=== PATIENT | male | born 2000 | race African-American/Black ===

== ENCOUNTER 2024-02-12 20:55 | Emergency (ER) | payer OTHER, SELFPAY ==
--- NOTE | ~2024-02-12 | CT_ITS ---
Non-contrast CT scan of the Abdomen and Pelvis Clinical indication: Right flank pain Technique: 2.5 mm axial scans were obtained through the abdomen and pelvis without intravenous or or al contrast. Dose reduction technique was used on this scan by utilizing automated exposure control a nd iterative reconstruction technique. The dose-length product (DLP) was 625.08 mGy-cm. Findings: Images through the lung bases reveal no abnormalities. There is no evidence of renal or ureteral calculi. The kidneys and the ureters are nondilated. The liver, spleen, pancreas, gallbladder, and adrenals appear normal. There is no aortic aneurysm. There is no evidence of bowel obstruction. Shotty right lower quadrant lymph nodes are noted. Images through the pelvis were performed. There is no evidence of ascites or lymphadenopathy. Urinary bladder unremarkable. No pelvic mass seen. Impression: Shotty right lower quadrant lymph nodes could reflect mesenteric adenitis. No other significant findings. Reviewed, dictated and finalized at [facility]. Impression: Shotty right lower quadrant lymph nodes could reflect mesenteric adenitis. No other significant findings.
[2024-02-12 20:58] VITALS: BP 139/82; PULSE 112; RESP 18; TEMP 36.7; O2SAT 100
[2024-02-12 22:11] VITALS: BP 117/66; PULSE 90; RESP 17; O2SAT 100
[2024-02-12 22:22] LABS: Basophils Percent Auto 0.4 % (0.2-1.2); Eosinophils Absolute Auto 0.2 K/mm3 (0-0.3); Eosinophils Percent Auto 3.1 % (0-4.4); Hemoglobin 14.3 g/dL (14.0-18.0); Immature Granulocyte Absolute 0.02 K/mm3 (0.00-0.031); Immature Granulocyte Percent A 0.3 % (0-0.5); Lymphocytes Percent Auto 32.6 % (18.3-44.2); Mean Corpuscular HGB Conc 33.3 g/dl (32-36); Mean Corpuscular Volume 84.3 fl (80-100); Mean Platelet Volume 9.5 fl (7.4-10.4); Monocytes Absolute Auto 0.5 K/mm3 (0.1-0.6); Monocytes Percent Auto 6.7 % (2.6-8.5); Neutrophils Absolute Auto 4.4 K/mm3 (1.3-6.7); Neutrophils Percent Auto 56.9 % (45.5-73.1); Platelet Count Result 242 k/mm3 (150-375); Red Cell Distribution Width 12.6 % (11.5-14.5); White Blood Count 7.7 K/mm3 (4.5-10.0)
[2024-02-12 22:32] LABS: Alanine Aminotransferase 25 U/L (6-50); Albumin Level 4.5 g/dL (3.5-5.1); Alkaline Phosphatase 69 U/L (38-126); Anion Gap 12 mmol/L (4-12); Aspartate Amino Transferase 23 U/L (17-59); Bilirubin,Total 0.3 mg/dL (0.2-1.3); Blood Urea Nitrogen 13 mg/dL (9-20); Calcium 9.4 mg/dL (8.4-10.2); Carbon Dioxide 24 mmol/L (22-30); Chloride 102 mmol/L (98-107); Estimated CRCL calculation 121 ml/min; Estimated Glomerular Filt Rate > 60; Glucose 147 mg/dL (65-110); Potassium 3.4 mmol/L (3.4-5.0); Sodium 138 mmol/L (137-145)
[2024-02-12 22:36] LABS: Add Urine Microscopic? NO; Appearance Urine Clear (Clear); Bilirubin Urine Negative (Negative); Blood Urine Negative (Negative); Color Urine Yellow (Yellow); Glucose Urine UA Negative (Negative); Ketones Urine Negative (Negative); Leukocyte Esterase Ur Negative LEU/UL (Negative); Nitrate Urine Negative (Negative); Protein Urine Negative (Negative); pH Urine 5.5 (5.0-9.0)
[2024-02-12] MEDS: ACETAMINOPHEN 500 MG TABLET 1000 MG PO (23:41)
[2024-02-12] MEDS: KETOROLAC 15 MG/ML VIAL (*BKC) IV PUSH (23:42)
[2024-02-12] MEDS: SODIUM CHLORIDE 0.9% IV 1,000 ML 999 ML IV CONT (23:42)
[2024-02-12] MEDS: ONDANSETRON INJ 4 MG/2 ML VIAL IV PUSH (23:42)
--- NOTE | 2024-02-12 23:46 | PC.NURSE ---
pt verbalized not having a ride home, so will hold muscle relaxers at this time.
[2024-02-12] MEDS: methocarbamoL 750 MG TABLET 1500 MG PO (23:55)
--- NOTE | 2024-02-12 23:56 | PC.NURSE ---
ok to give half dose of robaxin per edp
--- NOTE | 2024-02-13 01:28 | ED.GENADULT ---
HPI - General Adult General Chief complaint: Urogenital-Male Stated complaint: blood in urine, vomiting blood Time Seen by Provider: 02/12/24 22:12 History of Present Illness HPI narrative: This is a 23-year-old male presenting with multiple complaints. His 1st concern is vomiting blood. Patient said he threw up twice this morning and there were specks of red in it. No history of alcohol abuse liver cirrhosis or blood thinners. He is no longer nauseous. Patient is also complaining of right-sided flank pain. Says he has a sharp pain in the right flank it is nonradiating mild in intensity and constant. He is concerned about kidney stones. He says that he has had some blood in his urine and by that he means is been dark. Patient denies dysuria, is not sexually active, no penile discharge or testicular pain. No history of kidney stones. Related Data Allergies Allergy/AdvReac Type Severity Reaction Status Date / Time No Known Allergies Allergy Verified 02/12/24 23:40 Exam Narrative: APPEARANCE: No apparent distress. Anxious appearing Head: atraumatic. EYES: EOMI, NOSE: Atraumatic NECK: Trachea midline RESPIRATORY: No increased rate of breathing, clear to auscultation CARDIOVASCULAR: RRR, ABDOMINAL: Non-distended soft nontender no guarding rebound, no CVA tenderness MUSCULOSKELETAl: No obvious deformities NEURO: Alert. Moving 4/4 extremities SKIN:: Warm, dry. Normal color PSYCHIATRIC: Normal affect Course Vital Signs Vital signs: Vital Signs Temperature 98.1 F 02/12/24 20:58 Pulse Rate 112 H 02/12/24 20:58 Respiratory Rate 18 02/12/24 20:58 Blood Pressure 139/82 02/12/24 20:58 Pulse Oximetry 100 02/12/24 20:58 Oxygen Delivery Room Air 02/12/24 20:58 Temperature 98.1 F 02/12/24 20:58 Pulse Rate 90 02/12/24 22:11 Respiratory Rate 17 02/12/24 22:11 Blood Pressure 117/66 02/12/24 22:11 Pulse Oximetry 100 02/12/24 22:11 Oxygen Delivery Room Air 02/12/24 20:58 Medical Decision Making [facility] Narrative Medical decision making narrative: -Course: 23-year-old male presenting with multiple complaints. In regards to flank pain and possible hematuria. His urine is not indicative infection. There is no blood in his urine. He does not have kidney stones on a CT. He has no CVA tenderness and is resting comfortably. Patient had 2 episodes of vomiting with specks of blood in it but I am not concerned for true hematemesis. Patient was informed of the results it appears vastly relieved. He will be discharged with primary care follow-up return precautions. -DDX includes but is not limited to: Nausea vomiting, hematemesis, gastritis, muscle pain, kidney stone, kidney infection -Independent interpretation of studies: Labs imaging reviewed -Interventions: Motrin Tylenol Robaxin -Shared decision making / Disposition: Discharge -RX Motrin Tylenol Robaxin Vital Signs Vital Signs: Vital Signs Temperature 98.1 F 02/12/24 20:58 Pulse Rate 112 H 02/12/24 20:58 Respiratory Rate 18 02/12/24 20:58 Blood Pressure 139/82 02/12/24 20:58 Pulse Oximetry 100 02/12/24 20:58 Oxygen Delivery Room Air 02/12/24 20:58 Temperature 98.1 F 02/12/24 20:58 Pulse Rate 90 02/12/24 22:11 Respiratory Rate 17 02/12/24 22:11 Blood Pressure 117/66 02/12/24 22:11 Pulse Oximetry 100 02/12/24 22:11 Oxygen Delivery Room Air 02/12/24 20:58 Lab Data 02/12/24 22:16 02/12/24 22:16 Labs: Lab Results 02/12/24 02/12/24 Range/Units 22:16 22:29 WBC 7.7 (4.5-10.0) K/mm3 RBC 5.10 (4.6-6.20) M/mm3 Hgb 14.3 (14.0-18.0) g/dL Hct 43.0 (42.0-52.0) % MCV 84.3 (80-100) fl MCH 28.0 (26-34) pg MCHC 33.3 (32-36) g/dl RDW 12.6 (11.5-14.5) % Plt Count 242 (150-375) k/mm3 MPV 9.5 (7.4-10.4) fl Immature Gran % (Auto) 0.3 (0-0.5) % Neut % (Auto) 56.9 (45.5-73.1) % Lymph % (Auto) 32.6 (18.3-4
[2024-02-13 03:54] VITALS: BP 117/75; PULSE 66; RESP 16; TEMP 36.6; O2SAT 98
== END 2024-02-13 03:55 | disposition home or self-care (01) ==
PROVIDERS: Emergency Provider Emergency Medicine
DX: R11.2 Nausea with vomiting, unspecified (principal); R10.9 Unspecified abdominal pain
CPT/HCPCS: 36415; 74176; 80053; 81003; 85025; 96361; 96374; 96375; 99284; A9270; J1885; J2405; J7030

== ENCOUNTER 2024-06-24 01:59 | Emergency (ER) | payer OTHER, SELFPAY ==
--- NOTE | ~2024-06-24 | CT_ITS ---
Clinical Indication: Pain CT Scan of the Chest, Abdomen, and Pelvis with Contrast: Technique: Contiguous sections were acquired throughout the chest, abdomen, and pelvis after intraven ous administration of 100 cc of Omnipaque 350. Dose reduction technique was used on this scan by tati carcamo automated exposure control and iterative reconstruction technique. The dose-length product (DL P) was 723.99 mGy-cm. Comparison: 02/13/2024 Findings: There is no evidence of any significant mediastinal, hilar or axillary lymphadenopathy. The mediastin al soft tissues appear normal. No large central pulmonary embolus seen. No aortic aneurysm or dissect ion. There is no evidence of pleural or pericardial effusion. The lungs are clear. No pulmonary nodules or infiltrates are noted. The liver, spleen, pancreas, gallbladder, adrenals and kidneys are within normal limits. No evidence of aortic aneurysm. No lymphadenopathy. No bowel obstruction or bowel wall thickening. There is no evidence to suggest acute appendicitis. Urinary bladder is unremarkable. No pelvic mass seen. No ascites. Impression: No significant abnormalities seen. Reviewed, dictated and finalized at [facility]. RICAL CONTROL MACHINE OPERATOR Impression: No significant abnormalities seen.
[2024-06-24 02:00] VITALS: BP 131/87; PULSE 115; RESP 18; TEMP 36.6; O2SAT 100
[2024-06-24 02:22] LABS: Basophils Percent Auto 0.4 % (0.2-1.2); Eosinophils Absolute Auto 0.1 K/mm3 (0-0.3); Eosinophils Percent Auto 0.9 % (0-4.4); Hematocrit 43.5 % (42.0-52.0); Hemoglobin 14.3 g/dL (14.0-18.0); Immature Granulocyte Absolute 0.01 K/mm3 (0.00-0.031); Immature Granulocyte Percent A 0.1 % (0-0.5); Lymphocytes Absolute Auto 2.62 K/mm3 (0.9-3.2); Mean Corpuscular HGB Conc 32.9 g/dl (32-36); Mean Corpuscular Volume 85.1 fl (80-100); Mean Platelet Volume 9.5 fl (7.4-10.4); Monocytes Absolute Auto 0.6 K/mm3 (0.1-0.6); Monocytes Percent Auto 8.1 % (2.6-8.5); Neutrophils Absolute Auto 4.4 K/mm3 (1.3-6.7); Neutrophils Percent Auto 56.5 % (45.5-73.1); Platelet Count Result 254 k/mm3 (150-375); Red Blood Count 5.11 M/mm3 (4.6-6.20); Red Cell Distribution Width 12.5 % (11.5-14.5); White Blood Count 7.7 K/mm3 (4.5-10.0)
--- NOTE | 2024-06-24 02:25 | ECG_ITS ---
Test Date: 2024-06-24 02:30:01 Measurements Intervals [place] Rate: 109 P: 32 TX: 153 QRS: 58 QRSD: 93 T: 33 QT: 320 QTc: 432 Interpretive Statements SINUS TACHYCARDIA MODERATE T-WAVE ABNORMALITY, CONSIDER ANTERIOR ISCHEMIA [-0.1+ mV T-WAVE IN V3/V4] No previous ECG available for comparison Electronically Signed On 06-24-2024 15:16:05 MUSIC CRITIC by Markie Henao M.D.
[2024-06-24] MEDS: ONDANSETRON INJ 4 MG/2 ML VIAL IV PUSH (02:31)
[2024-06-24] MEDS: SODIUM CHLORIDE 0.9% IV 1,000 ML 999 ML IV CONT ×2 (02:31→02:32)
[2024-06-24 02:32] LABS: Alanine Aminotransferase 38 U/L (6-50); Albumin Level 4.4 g/dL (3.5-5.1); Alkaline Phosphatase 71 U/L (38-126); Anion Gap 11 mmol/L (4-12); Aspartate Amino Transferase 22 U/L (17-59); Bilirubin,Total 0.4 mg/dL (0.2-1.3); Blood Urea Nitrogen 15 mg/dL (9-20); Calcium 8.8 mg/dL (8.4-10.2); Carbon Dioxide 23 mmol/L (22-30); Chloride 105 mmol/L (98-107); Estimated Glomerular Filt Rate > 60; Glucose 125 mg/dL (65-110); Lipase 48 U/L (23-300); Potassium 3.5 mmol/L (3.4-5.0); Sodium 139 mmol/L (137-145)
[2024-06-24 02:45] VITALS: TEMP 36.6
[2024-06-24 02:49] LABS: Magnesium 1.9 mg/dL (1.6-2.3)
--- NOTE | 2024-06-24 03:36 | ED.ABDPAIN ---
HPI - Abdominal Pain General Chief Complaint: Abdominal Pain Stated Complaint: headache, N/V, left left abdomen tightness Time Seen by Provider: 06/24/24 02:14 History of Present Illness HPI narrative: Patient is a 23-year-old male who presents to the emergency department this evening complaining of left-sided flank pain and left upper abdominal pain for the past 3 days. Patient also states that he has been having nausea, vomiting and headache as well. Denies any urinary symptoms including dysuria or hematuria. Denies any sharp stabbing chest pain or any shortness of breath. Patient also denies any history of kidney stones. No sick contacts at home. Denies any fevers or chills. No additional symptoms or concerns at this time. Related Data Allergies Allergy/AdvReac Type Severity Reaction Status Date / Time No Known Allergies Allergy Verified 02/12/24 23:40 Review of Systems Review of Systems: All systems are reviewed and are negative unless stated otherwise in the HPI. Exam Narrative: General: Alert, awake, afebrile, in no acute distress. HEENT: PERRL, no rhinorrhea, no post nasal drip, oropharynx clear. Neck: Trachea midline, no JVD, no lymphadenopathy. Cardiovascular: Regular rate and rhythm, no murmurs, rubs or gallops, no peripheral edema. Respiratory: Clear to auscultation bilaterally, no tachypnea, no wheezing, no rhonchi, no rubs, no respiratory distress. Abdomen: Soft, nontender, nondistended, no rebound, no guarding, no peritoneal signs. Musculoskeletal: No joint swelling or deformity, normal muscle tone. Skin: No rashes or petechia, no signs of infection. Psychiatric: Alert and oriented, normal behavior and judgment for situation. Neurological: Alert and oriented to person, place, and time. Follows all commands. No focal deficits, speech is clear and fluent. Course Vital Signs Vital signs: Vital Signs Temperature 97.8 F 06/24/24 02:00 Pulse Rate 115 H 06/24/24 02:00 Respiratory Rate 18 06/24/24 02:00 Blood Pressure 131/87 06/24/24 02:00 Pulse Oximetry 100 06/24/24 02:00 Oxygen Delivery Room Air 06/24/24 02:00 Temperature 97.9 F 06/24/24 02:45 Pulse Rate 81 06/24/24 06:04 Respiratory Rate 14 06/24/24 06:04 Blood Pressure 106/65 06/24/24 06:04 Pulse Oximetry 100 06/24/24 06:04 Oxygen Delivery Room Air 06/24/24 02:00 MDM - Abdominal Pain MDM Narrative Medical decision making narrative: The patient was evaluated by myself in the emergency department. History is obtained from patient who is an independent historian and physical exam was performed. External medical records were reviewed at this time. IV was established and pertinent tests were ordered. Patient was administered 1 L IV fluid bolus with normal saline, 4 mg IV Zofran for nausea which patient states has not helped his nausea and at this time was administered 10 mg of IV Reglan, 25 mg IV Benadryl and 15 mg of IV Toradol for pain. EKG was obtained which revealed sinus tachycardia rate of 108 beats per minute. No evidence of acute ischemia. EKG was independently interpreted by me and is currently pending official cardiology read. Laboratory results obtained revealing no acute process. Imaging studies obtained included CT chest abdomen and pelvis with IV contrast which was independently interpreted by me revealing no acute process, which is pending final radiology interpretation. Differential diagnosis considerations include acute pancreatitis, gastroenteritis, gastritis, electrolyte derangements, dehydration. Comorbidities impacting this visit include none. I have evaluated and discussed social determinants of health with the patient that could potentially impact subsequent diagnosis and treatment plans. On repeat assessment of the patient, reevaluation revealed that the patient is doing well and is in no acute distress. Patient symptoms have improved since he arrived to our emergency department. Repeat vital signs were all reviewed and noted to be stable. Differential diagnosis and treatment plan were discussed with the patient at bedside. Patient agrees with discussion and after shared medical decision making agrees with discharge. All questions were answered to the patient's satisfaction. Patient will follow up with his PCP in 3-5 days. Patient was provided with strict return precautions and instructed to return to the emergency department if any new or worsening symptoms develop. The patient was discharged in stable condition. Lab Data 06/24/24 02:16 06/24/24 02:16 Labs: Lab Results 06/24/24 06/24/24 Range/Units 02:16 04:17 WBC 7.7 (4.5-10.0) K/mm3 RBC 5.11 (4.6-6.20) M/mm3 Hgb 14.3 (14.0-18.0) g/dL Hct 43.5 (42.0-52.0) % MCV 85.1 (80-100) fl MCH 28.0 (26-34) pg MCHC 32.9 (32-36) g/dl RDW 12.5 (11.5-14.5) % Plt Count 254 (150-375) k/mm3 MPV 9.5 (7.4-10.4) fl Immature Gran % (Auto) 0.1 (0-0.5) % Neut % (Auto) 56.5 (45.5-73.1) % Lymph % (Auto) 34.0 (18.3-44.2) % [place] % (Auto) 8.1 (2.6-8.5) % Eos % (Auto) 0.9 (0-4.4) % Baso % (Auto) 0.4 (0.2-1.2) % Lymph # (Auto) 2.62 (0.9-3.2) K/mm3 [place] # (Auto) 0.6 (0.1-0.6) K/mm3 Eos # (Auto) 0.1 (0-0.3) K/mm3 Baso # (Auto) 0.0 (0.0-0.1) K/mm3 Abs Immat Gran (auto) 0.01 (0.00-0.031) K/mm3 Absolute Neuts (auto) 4.4 (1.3-6.7) K/mm3 Absolute Nucleated RBC 0.000 (0.0-0.012) K/mm3 Nucleated RBC % 0.0 (0.0-0.2) % Sodium 139 (137-145) mmol/L Potassium 3.5 (3.4-5.0) mmol/L Chloride 105 (98-107) mmol/L Carbon Dioxide 23 (22-30) mmol/L Anion Gap 11 (4-12) mmol/L BUN 15 (9-20) mg/dL Creatinine 0.74 (0.7-1.3) mg/dL Estim Creat Clear Calc Not Reportable Estimated GFR > 60 (59 - ) Glucose 125 H (65-110) mg/dL Calcium 8.8 (8.4-10.2) mg/dL Magnesium 1.9 (1.6-2.3) mg/dL Total Bilirubin 0.4 (0.2-1.3) mg/dL AST 22 (17-59) U/L ALT 38 (6-50) U/L Alkaline Phosphatase 71 (38-126) U/L Total Protein 8.0 (6.3-8.2) g/dL Albumin 4.4 (3.5-5.1) g/dL Lipase 48 (23-300) U/L Urine Color Yellow (Yellow) Urine Appearance Clear (Clear) Urine pH 6.5 (5.0-9.0) Ur Specific [place] 1.028 (1.001-1.035) Urine Protein Negative (Negative) mg/dL Urine Glucose (UA) Negative (Negative) mg/dL Urine Ketones Trace H (Negative) mg/dL Ur Blood (Man) Negative (Negative) Urine Nitrate Negative (Negative) Urine Bilirubin Negative (Negative) Urine Urobilinogen 1.0 (<2.0) mg/dL Leukocyte Esterase Rfl Negative (Negative) STEVE/UL Urine Opiates Screen Negative (Negative) Urine Methadone Screen Negative (Negative) Ur Barbiturates Screen Negative (Negative) Ur Phencyclidine Scrn Negative (Negative) Ur Amphetamine Screen Negative (Negative) U Benzodiazepines Scrn Negative (Negative) Urine Cocaine Screen Negative (Negative) U Cannabinoids Screen Negative (Negative) Imaging Data Radiologist's impression: ITS Impressions Chest/Abdomen/Pelvis CT 06/24/24 06:07 Impression: No significant abnormalities seen. Discharge Plan Discharge Clinical Impression: Nausea & vomiting, Abdominal pain, epigastric Patient Disposition: Home, Self-Care Condition: Improved Instructions: Antibiotic Form Additional Instructions: Please follow-up with your family doctor within the next 3-5 days return to the ED for blood. Patient Language: Thai Prescriptions: No Action ibuprofen 800 mg tablet 800 mg PO TID PRN (Reason: pain) 7 Days Qty: 21 0RF acetaminophen 500 mg tablet 1,000 mg PO TID PRN (Reason: melvin) 7 Days Qty: 42 0RF methocarbamol 750 mg tablet 1,500 mg PO TID Qty: 35 0RF Follow-up/Referrals: PHYSICIAN,CUSTOMER SERVICE DRIVER [Primary Care Provider] - Mateo Max MD [Physician] - 3 Days Time of Disposition: 06:34
[2024-06-24] MEDS: KETOROLAC 15 MG/ML VIAL (*BKC) IV PUSH (04:13)
[2024-06-24] MEDS: diphenhydrAMINE HCl INJ 50 MG/ML VIAL 25 MG IV PUSH (04:13)
[2024-06-24] MEDS: METOCLOPRAMIDE HCL INJ 10 MG/2 ML VIAL IV PUSH (04:13)
[2024-06-24] MEDS: SODIUM CHLORIDE 0.9% IV 200 ML 100 ML (04:26)
--- NOTE | 2024-06-24 04:26 | PC.NURSE ---
ns 100ml bag given with reglan and benadryl
--- NOTE | 2024-06-24 04:27 | ECG_ITS ---
Test Date: 2024-06-24 04:30:48 Measurements Intervals [place] Rate: 86 P: 25 SC: 168 QRS: 52 QRSD: 93 T: 27 QT: 388 QTc: 464 Interpretive Statements SINUS RHYTHM NONSPECIFIC ST & T-WAVE ABNORMALITY Compared to ECG 06/24/2024 02:30:01 Sinus tachycardia no longer present Improvement in T-wave abnormality in Lead V3 Electronically Signed On 06-24-2024 15:20:32 GRAPE PICKER by Markie Henao M.D.
[2024-06-24 04:28] LABS: Add Urine Microscopic? NO; Appearance Urine Clear (Clear); Bilirubin Urine Negative (Negative); Blood Urine Negative (Negative); Color Urine Yellow (Yellow); Glucose Urine UA Negative (Negative); Ketones Urine Trace mg/dL (Negative); Leukocyte Esterase Ur Negative LEU/UL (Negative); Nitrate Urine Negative (Negative); Protein Urine Negative (Negative); Specific Grav Ur 1.028 (1.001-1.035); pH Urine 6.5 (5.0-9.0)
[2024-06-24 04:45] LABS: Amphetamine Screen Urine Negative (Negative); Barbiturate Screen Urine Negative (Negative); Benzodiazepines Screen Urine Negative (Negative); Cannabinoid Screen Urine Negative (Negative); Cocaine Screen Urine Negative (Negative); Methadone Screen Urine Negative (Negative); Opiate Screen Urine Negative (Negative); Phencyclidine Screen Urine Negative (Negative)
[2024-06-24 06:04] VITALS: BP 106/65; PULSE 81; RESP 14; O2SAT 100
[2024-06-24] MEDS: ACETAMINOPHEN 500 MG TABLET 1000 MG PO (06:44)
[2024-06-24 06:45] VITALS: BP 112/77; PULSE 73; RESP 17; TEMP 36.4; O2SAT 90
== END 2024-06-24 06:57 | disposition home or self-care (01) ==
PROVIDERS: Emergency Provider Emergency Medicine
DX: R11.2 Nausea with vomiting, unspecified (principal); R10.13 Epigastric pain
CPT/HCPCS: 36415; 71260; 74177; 80053; 80307; 81003; 83690; 83735; 85025; 93005; 96361; 96374; 96375; 99284; A9270; J1200; J1885; J2405; J2765; J7030; Q9967

== ENCOUNTER 2024-10-25 23:25 | Emergency (ER) | payer OTHER, SELFPAY ==
--- NOTE | ~2024-10-25 | XR_ITS ---
Portable chest x-ray Comparison: None Clinical History: Chest pain Findings: Lungs are clear, without focal consolidation or pleural effusion. Cardiomediastinal silho uette is unremarkable. Bones and soft tissues are unremarkable. Impression: Normal chest. Reviewed, dictated and finalized at location M. Impression: Normal chest.
--- NOTE | ~2024-10-25 | CT_ITS ---
Non-contrast CT scan of the Abdomen and Pelvis Clinical indication: Flank pain Technique: 2.5 mm axial scans were obtained through the abdomen and pelvis without intravenous or or al contrast. Dose reduction technique was used on this scan by utilizing automated exposure control a nd iterative reconstruction technique. The dose-length product (DLP) was 524.94 mGy-cm. COMPARISON: 06/24/2024 Findings: Images through the lung bases reveal no abnormalities. There is no evidence of renal or ureteral calculi. The kidneys and the ureters are nondilated. The liver, spleen, pancreas, gallbladder, and adrenals appear normal. There is no aortic aneurysm. There is no evidence of bowel obstruction. Normal appendix. Images through the pelvis were performed. There is no evidence of ascites or lymphadenopathy. Urinary bladder unremarkable. No pelvic mass seen. No ascites. Impression: No significant abnormality seen. Reviewed, dictated and finalized at [facility]. Impression: No significant abnormality seen.
--- OUTSIDE RECORDS SUMMARY | 2024-10-25 23:27 | XMS_ITS | Clinical Summary ---
Author Organization [facility] Address [facility] [place] [address] Care Team Providers Care Event Lighting Specialist Name Role Phone None, Provider MD Primary Care Provider Unavaila ble Allergies No known active allergies Medications No known medications Active Problems Problem Noted Date Diagnosed Date Chest pain 11/27/2021 Social History Tobacco Use Types Packs/Day Years Used Date Smoking Tobacco: Never Smokeless Tobacco: Never Alcohol Use Standard Drinks/Week Comments Never 0 (1 standard drink = 0.6 oz pur e alcohol) Sex and Gender Information Value Date Recorded Sex Assigned at Not on file Legal Sex Male 8:01 PM CDT Gender Identity Not on file Sexual Orientation Not on file Last Filed Vital Signs Vital Sign Reading Time Taken Comments Blood Pressure 119/88 05/07/2023 10:30 PM SCRAP PREPARATION SUPERVISOR Pulse 100 05/07/2023 9:05 PM SCRAP PREPARATION SUPERVISOR Temperature 36.6 C (97.9 F) 05/07/2023 7:54 PM SCRAP PREPARATION SUPERVISOR Respiratory Rate 17 05/07/2023 9:05 PM SCRAP PREPARATION SUPERVISOR Oxygen Saturation 99% 05/07/2023 10:35 PM SCRAP PREPARATION SUPERVISOR Inhaled Oxygen Concentration - - Weight 92.2 kg (203 lb 4.2 oz) 05/07/2023 7:54 P M SCRAP PREPARATION SUPERVISOR Height 170.2 cm (5' 7 ) 05/07/2023 7:54 PM SCRAP PREPARATION SUPERVISOR Body Mass Index 31.84 05/07/2023 7:54 PM SCRAP PREPARATION SUPERVISOR Plan of Treatment Health Maintenance Due Date Last Done Comments Annual Physical 2005 Hepatitis C 2020 COVID-19 Vaccine ( season) 2024 12/08/2020, 11/17/2020 DTaP, Tdap and Td Vaccines (9 - Td or Tdap) 02/25/2024 02/24/2014, 02/14/2014, 11/13/2012, Additional history exists Hepatitis B Vaccines Completed 04/10/2003, 01/12/2003, 2002, Additional history exists Pneumococcal Vaccine: Pediatrics (0 to 5 Years) and At-Risk Patients (6 to 49 Years) Aged Out 04/10/2003, 01/12/2003, 2002 No longer eligible based on patient's age to complete this topic HPV Vaccines Completed 09/24/2017, 09/09, 03/09/2015 Meningococcal Vaccine Completed 03/03/2019, 014 Meningococcal B Vaccine Completed 01/28/2021, 03/03 RSV Immunizations Under 20 Months Aged Out No longer eligible based on patient's age to complete this topic Insurance [employer] Advance Directives * Full Code (Latest Code Status on File) Date Activated Date Inactivated Comments 11/27/2021 10:42 PM 11/28/2021 9:55 PM Care Teams Event Lighting Specialist Relationship Specialty Start Date End Date None, Provider, PCP - General 11/27/21
--- OUTSIDE RECORDS SUMMARY | 2024-10-25 23:27 | XMS_ITS | Referral Summary ---
Author Organization [facility] Address [facility] [place] [address] Care Team Providers Care Wheel Loader Operator Name Role Phone Unknown, Notinfile Primary Care Provider Unavail able Allergies No known active allergies Medications cyclobenzaprine (FLEXERIL) 10 mg tablet Take 1 tablet (10 mg total) by mouth 3 (three) times a day as needed for muscle spasms 12 tablet 11/25/2021 Active ibuprofen (ADVIL,MOTRIN) 800 mg tablet Take 1 tablet (800 mg total) by mouth 3 (three) times a day 21 tablet 11/25/2021 Active Social History Tobacco Use Types Packs/Day Years Used Date Smoking Tobacco: Never Assessed Personal Safety Answer Date Recorded Getting School Help Needed Not on file 06/14 Sex and Gender Information Value Date Recorded Sex Assigned at Not on file Legal Sex Male 7:28 PM REMANUFACTURING TECHNICIAN Gender Identity Not on file Sexual Orientation Not on file Last Filed Vital Signs Vital Sign Reading Time Taken Comments Blood Pressure 124/87 11/25/2021 3:03 PM CDT Pulse 86 11/25/2021 3:03 PM CDT Temperature 36.7 C (98.1 F) 11/25/2021 1:56 PM CDT Respiratory Rate 20 11/25/2021 3:03 PM CDT Oxygen Saturation 99% 11/25/2021 3:03 PM CDT Inhaled Oxygen Concentration - - Weight 90.6 kg (199 lb 11.8 oz) 11/25/2021 1:56 PM CDT Height 170.2 cm (5' 7 ) 11/25/2021 1:56 PM CDT Body Mass Index 31.28 11/25/2021 1:56 PM CDT Plan of Treatment Not on file Insurance [facility] Care Teams Wheel Loader Operator Relationship Specialty Start Date End Date Unknown, Notinfile PCP - General 11/25/21
--- OUTSIDE RECORDS SUMMARY | 2024-10-25 23:27 | XMS_ITS | Clinical Summary ---
Author Organization [facility] Address [address] [place] [address] Care Team Providers Care Grinding Room Inspector Name Role Phone Unavailable Primary Care Provider Unavailabl e Source Comments [facility],non-owned Affiliates and Associated Physician Practices is amultiple site organization consisting of ambulatory clinics and hospital sitesin [place], [place], [place] and [place]. This disclosure is being madepursuant to the Care Everywhere program and may not contain all information available regarding this patient. Last updated 18.[employer] [facility] Allergies No known active allergies Medications * Be aware that medications may not be up to date on this document. Alwaysverify current medications with the patient. ibuprofen (MOTRIN) 600 MG tablet Take 1 tablet by mouth every 8 hours as needed for Pain Collaborating Physician: Amish Love MD 30 tablet 8 Active cetirizine (ZYRTEC) 10 MG tablet Take 1 tablet by mouth at bedtime Collaborating Physician: Amish Love MD 30 tablet 8 Active ibuprofen (Motrin) 600 MG tablet Take 1 (one) tablet by mouth every 8 hours as needed for Pain 30 tablet 4 Active Social History Tobacco Use Types Packs/Day Years Used Date Smoking Tobacco: Never Smokeless Tobacco: Never Alcohol Use Standard Drinks/Week Comments No 0 (1 standard drink = 0.6 oz pur e alcohol) Sex and Gender Information Value Date Recorded Sex Assigned at Not on file Legal Sex Male 5:45 AM FUSION JUNCTURE GRINDER Gender Identity Not on file Sexual Orientation Not on file Last Filed Vital Signs Vital Sign Reading Time Taken Comments Blood Pressure 106/72 08/29/2023 1:33 AM CDT Pulse 81 08/29/2023 1:33 AM CDT Temperature 36.8 C (98.3 F) 08/29/2023 1:33 AM CDT Respiratory Rate 16 08/29/2023 1:33 AM CDT Oxygen Saturation 100% 08/29/2023 1:33 AM CDT Inhaled Oxygen Concentration - - Weight 77.1 kg (170 lb) 08/28/2023 11:10 PM CDT Height 170.2 cm (5' 7 ) 08/28/2023 11:10 PM CDT Body Mass Index 26.63 08/28/2023 11:10 PM CDT Plan of Treatment Health Maintenance Due Date Last Done Comments HIV SCREENING 2017 HPV VACCINE (1 - Male 3-dose series) 2017 MENINGOCOCCAL (Group B) VACCINE SHARED DECISION-MAKING (1 of 2 - Standard) 2018 HEPATITIS C SCREENING 09/02/2020 DTAP/TDAP/TD VACCINES (1 - Tdap) 2021 HEPATITIS B VACCINE (1 of 3 - 19+ 3-dose series) 2021 COVID-19 VACCINE (3 - season) 2024 12/08/2020, 11/17/2020 DEPRESSION SCREENING 06/11/2024 INFLUENZA VACCINE (Season Ended) 2025 03/03/2019, 09/26/2016, 06/17/2014, Additional history exists ZOSTER VACCINE (1 of 2) 2052 HIB VACCINE Aged Out No longer eligi ble based on patient's age to complete this topic MENINGOCOCCAL GROUPS A/C/Y/W VACCINE Aged Out No longer eligible based on patient's age to complete this topic PNEUMOCOCCAL VACCINE Aged Out No long er eligible based on patient's age to complete this topic Insurance * Guarantor: Candice Nicolas Account Type Relation to Patient Date of Phone Billing Address Personal/Family Self 2000 [address] [place] [address] [facility]
--- OUTSIDE RECORDS SUMMARY | 2024-10-25 23:27 | XMS_ITS | Clinical Summary ---
Author Organization [facility] Address [facility] [place] [address] Care Team Providers Care Technician Assistant Name Role Phone Unknown, Notinfile Primary Care [...] on file Legal Sex Male 7:28 PM PEOPLESOFT HCM CONSULTANT Gender Identity Not on file Sexual Orientation [...] 11/25/2021 1:56 PM CDT Plan of Treatment Health Maintenance Due Date Last Done Comments Depression Screening 2002 Hepatitis C Screening 2002 Regular Well Visit/Exam 18-64 2020 Covid-19 Vaccine ( season) 2024 12/08/2020, 11/17/2020 DTaP/Tdap/Td Vaccine (9 - Td or Tdap) 02/25/2024 02/24/2014, 02/14/2014, 11/13/2012, Additional history exists Influenza Vaccine (Season Ended) 2025 03/03/2019, 09/26/2016, 06/17/2014, Additional history exists Hepatitis B Screening Completed 04/10/2003 , 01/12/2003, 2002, Additional history exists Pneumococcal vaccine <65 Aged Out 003, 01/12/2003, 2002 No longer eligible based on patient's age to complete this topic Varicella Vaccines Completed 07/03/2007, 11/13/2003 HPV Vaccines Completed 09/24/2017, 09/09, 03/09/2015 Meningococcal B Vaccine Completed 01/28/2021, 03/03 Insurance [facility] Care Teams Technician Assistant Relationship Specialty Start Date End Date Unknown, Notinfile PCP - General 11/25/21
--- NOTE | 2024-10-25 23:28 | ECG_ITS ---
Test Date: 2024-10-25 23:35:54 Measurements Intervals [place] Rate: 98 P: 26 TN: 153 QRS: 61 QRSD: 93 T: -24 QT: 328 QTc: 419 Interpretive Statements SINUS RHYTHM ST DEVIATION AND MODERATE T-WAVE ABNORMALITY, CONSIDER ANTEROLATERAL ISCHEMIA [-0.1+ mV T-WAVE IN V3-V6] ABNORMAL ECG Compared to ECG 06/24/2024 04:30:48 Possible ischemia now present T-wave abnormality still present Electronically Signed On 10-26-2024 08:09:17 CDT by Williams Ramirez M.D.
[2024-10-25 23:32] VITALS: BP 128/100; PULSE 98; RESP 20; TEMP 36.9; O2SAT 100
[2024-10-25 23:37] VITALS: PULSE 101; RESP 18; O2SAT 100
--- NOTE | 2024-10-25 23:40 | ED.CHESTPAIN ---
HPI - Chest Pain General Chief Complaint: Chest Pain Stated Complaint: chest pain, light headed, low back pain Time Seen by Provider: 10/25/24 23:35 History of Present Illness HPI narrative: Patient states that he has been having some chest pain though this has been ongoing now for months, he has also been having some low back pain. Related Data Allergies Allergy/AdvReac Type Severity Reaction Status Date / Time No Known Allergies Allergy Verified 10/25/24 23:33 Review of Systems Review of Systems: All systems reviewed & are unremarkable except as noted in HPI and below Exam Narrative: EXAMINATION OF ORGAN SYSTEMS/BODY AREAS: Constitutional: Vital signs per nursing GENERAL:[No acute distress, non-toxic appearing.] HEAD: Normal with no signs of head trauma. EYES: EOMI, conjunctiva normal ENT: Hearing grossly intact LUNGS: Nonlabored breathing. Clear to auscultation bilaterally HEART: [Regular rate and rhythm] ABD: [Soft], [nontender to palpation] EXT: Normal range of motion SKIN: [No rashes or lesions.] NEURO: [Alert and oriented x 3. No gross focal sensory or strength deficits.] Clear speech. Ambulating with normal steady gait. PSYCH: Normal affect Course Vital Signs Vital signs: Vital Signs Temperature 98.4 F 10/25/24 23:32 Pulse Rate 98 10/25/24 23:32 Respiratory Rate 20 10/25/24 23:32 Blood Pressure 128/100 H 10/25/24 23:32 Pulse Oximetry 100 10/25/24 23:32 Temperature 98.4 F 10/25/24 23:32 Pulse Rate 77 10/26/24 03:55 Respiratory Rate 16 10/26/24 03:55 Blood Pressure 107/87 10/26/24 03:55 Pulse Oximetry 100 10/26/24 03:55 Oxygen Delivery Room Air 10/25/24 23:38 MDM - Chest Pain MDM Narrative Medical decision making narrative: ED COURSE AND MEDICAL DECISION MAKIN-year-old male presenting with chest pain. EKG done in triage negative for acute ischemic changes. Cardiac workup is initiated. EKG: Performed in triage and interpreted by me. Normal sinus rhythm. Rate 98. Normal axis. MT normal. QRS duration normal. QTc normal. No pathologic Q waves. He does have some flat T-waves inverted T-waves however these are present on his prior EKG back in June. No RV strain pattern. No acute ischemic changes on EKG and no risk factors making ACS unlikely. Negative PERC making PE unlikely. Presentation not consistent with dissection or aneurysm without radiation of pain or pulse deficits. CXR negative for mediastinal widening. No abdominal pain or signs of sepsis that would be concerning for esophageal perforation or mediastinitis. No cardiomegaly or JVD to suggest pericardial effusion/tamponade. Patient started telling us that he felt like he was having pain down his right leg also, CT abdomen/pelvis obtained to rule out kidney stone, spine abnormality or other cause of his symptoms, this is normal. Urinalysis also negative for blood. On repeat evaluation just prior to discharge, the patient is no acute distress. I had a long discussion with the patient and with shared decision making, [he] is comfortable with outpatient management. [He] was given clear return instructions by myself in person as well as on discharge paperwork. Procedures: Pulse oximetry interpretation - not hypoxic. EKG interpretation. Review of medical records. Lab Data Labs: Lab Results 10/26/24 Range/Units 00:41 Urine Color Yellow (Yellow) Urine Appearance Clear (Clear) Urine pH 5.5 (5.0-9.0) Ur Specific [place] 1.027 (1.001-1.035) Urine Protein Negative (Negative) mg/dL Urine Glucose (UA) Negative (Negative) mg/dL Urine Ketones Negative (Negative) mg/dL Ur Blood (Man) Negative (Negative) Urine Nitrate Negative (Negative) Urine Bilirubin Negative (Negative) Urine Urobilinogen 1.0 (<2.0) mg/dL Leukocyte Esterase Rfl Negative (Negative) STEVE/UL Discharge Plan Discharge Clinical Impression: Atypical chest pain, Back pain Patient Disposition: Home Condition: Stable Instructions: Chest Pain (ED), Back Pain (ED) Additional Instructions: Please take ibuprofen and Tylenol for pain and follow-up with your primary care doctor. You can always return to the emergency room for any further issues. Patient Language: Ukrainian Prescriptions: No Action ibuprofen 800 mg tablet 800 mg PO TID PRN (Reason: pain) 7 Days Qty: 21 0RF acetaminophen 500 mg tablet 1,000 mg PO TID PRN (Reason: melvin) 7 Days Qty: 42 0RF methocarbamol 750 mg tablet 1,500 mg PO TID Qty: 35 0RF Follow-up/Referrals: PHYSICIAN,SLEEVE SETTER [Primary Care Provider] -
[2024-10-25] MEDS: IBUPROFEN 600 MG TABLET PO (23:52)
[2024-10-26] VITALS (16 sets, daily range): BP systolic 93–107; BP diastolic 64–87; PULSE 73–92; RESP 13–23; O2SAT 97–100
--- NOTE | 2024-10-26 00:25 | PC.NURSE ---
Patient taken to CT via stretcher at this time.
--- OUTSIDE RECORDS SUMMARY | 2024-10-26 00:37 | XMS_ITS | Clinical Summary ---
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 Care Teams Chief Catalyst Operator Relationship Specialty Start Date End Date Unknown, Notinfile PCP - General 11/25/21
--- OUTSIDE RECORDS SUMMARY | 2024-10-26 00:37 | XMS_ITS | Clinical Summary ---
Author Organization [facility] Address [facility] [place] [address] Care Team Providers Care Contract Loader Name Role Phone None, Provider MD Primary [...] Comments Blood Pressure 119/88 05/07/2023 10:30 PM GSE MECHANIC Pulse 100 05/07/2023 9:05 PM GSE MECHANIC Temperature 36.6 C (97.9 F) 05/07/2023 7:54 PM GSE MECHANIC Respiratory Rate 17 05/07/2023 9:05 PM GSE MECHANIC Oxygen Saturation 99% 05/07/2023 10:35 PM GSE MECHANIC Inhaled Oxygen Concentration - - Weight 92.2 kg (203 lb 4.2 oz) 05/07/2023 7:54 P M GSE MECHANIC Height 170.2 cm (5' 7 ) 05/07/2023 7:54 PM GSE MECHANIC Body Mass Index 31.84 05/07/2023 7:54 PM GSE MECHANIC Plan of Treatment Health Maintenance Due Date [...] 10:42 PM 11/28/2021 9:55 PM Care Teams Contract Loader Relationship Specialty Start Date End Date None, Provider, PCP - General 11/27/21
--- OUTSIDE RECORDS SUMMARY | 2024-10-26 00:37 | XMS_ITS | Referral Summary ---
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
--- OUTSIDE RECORDS SUMMARY | 2024-10-26 00:37 | XMS_ITS | Clinical Summary ---
Author Organization [facility] Address [address] [place] [address] Care Team Providers Care Food Aide Name Role Phone Unavailable Primary Care Provider Unavailabl e Source Comments [facility],non-owned Affiliates and Associated Physician Practices is amultiple site organization consisting of ambulatory clinics and hospital sitesin [place], [place] and [place]. This disclosure is being madepursuant to the Care Everywhere program and may not contain all information available regarding this patient. 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
[2024-10-26 00:48] LABS: Add Urine Microscopic? NO; Appearance Urine Clear (Clear); Bilirubin Urine Negative (Negative); Blood Urine Negative (Negative); Color Urine Yellow (Yellow); Glucose Urine UA Negative (Negative); Ketones Urine Negative (Negative); Leukocyte Esterase Ur Negative LEU/UL (Negative); Nitrate Urine Negative (Negative); Protein Urine Negative (Negative); Specific Grav Ur 1.027 (1.001-1.035); pH Urine 5.5 (5.0-9.0)
--- NOTE | 2024-10-26 01:25 | PC.NURSE ---
Patient called this RN into room and states my back pain is worse, and now have numbness in my legs. ERP notified, no new orders.
== END 2024-10-26 04:31 | disposition home or self-care (01) ==
PROVIDERS: Emergency Provider Emergency Medicine
DX: R07.89 Other chest pain (principal); M54.50 Low back pain, unspecified
CPT/HCPCS: 71045; 74176; 81003; 93005; 99284; A9270